=== PATIENT | male | born 1970 | race Caucasian/White ===

== ENCOUNTER 2017-06-02 08:19 | Emergency (ER) | payer BC ==
--- NOTE | 2017-06-02 09:40 | UC ---
Truncal Trauma HPI - HPI Summary HPI Summary: 47 yo male was on tractor yesterday tried to push a 40 foot tree down yesterday with back blade tree snapped and top fell on him injuring his left lateral chest and left back as well as left hip and pelvis denies head injury or neck injury - History Of Current Complaint Chief Complaint: UCTrauma Stated Complaint: LEFT SIDE TRAUMA TREE FELL ON PT Time Seen by Provider: 06/02/17 08:54 Hx Obtained From: Patient Onset/Duration: Sudden Onset, Lasting Hours Onset Of Pain: Immediate Severity Initially: Severe Severity Currently: Moderate Pain Intensity: 7 - declines analgesia Pain Scale Used: 0-10 Numeric Mechanism Of Injury: Direct Blow Aggravating Factor(s): Movement, Deep Breathing, Cough, Other - ambul;ation Alleviating factor(s): Rest Associated Signs And Symptoms: Positive: Chest Pain. Negative: SOB, Cough, Hematuria, Abdominal Pain, Fever, Nausea, Vomiting - Allergies/Home Medications Allergies/Adverse Reactions: Allergies Allergy/AdvReac Type Severity Reaction Status Date / Time No Known Allergies Allergy Verified 06/08/16 09:43 PMH/Surg Hx/FS Hx/Imm Hx Previously Healthy: Yes - Surgical History Surgical History: Yes Surgery Procedure, Year, and Place: CRANIOTOMY 11/02/13. TONSILS A CHILD. WISDOM TEETH - Family History Known Family History: Positive: Hypertension - Social History Alcohol Use: Daily Alcohol Amount: 1 beer daily Substance Use Type: None Smoking Status (MU): Never Smoked Tobacco Review of Systems Constitutional: Negative Skin: Negative Eyes: Negative ENT: Negative Respiratory: Negative Cardiovascular: Chest Pain Gastrointestinal: Negative Genitourinary: Negative Motor: Negative Neurovascular: Negative Musculoskeletal: Arthralgia Neurological: Negative Psychological: Negative Is Patient Immunocompromised?: No All Other Systems Reviewed And Are Negative: Yes Physical Exam Triage Information Reviewed: Yes Appearance: Well-Nourished, Pain Distress Vital Signs: Initial Vital Signs Temp 98.1 F 06/02/17 08:42 Pulse 77 06/02/17 08:42 Resp 18 06/02/17 08:42 BP 145/86 06/02/17 08:42 Pulse Ox 100 06/02/17 08:42 Eyes: Positive: Conjunctiva Clear ENT: Positive: Hearing grossly normal, Uvula midline. Negative: Nasal congestion, Nasal drainage, Tonsillar swelling, Tonsillar exudate, Trismus, Muffled voice, Hoarse voice, Dental tenderness, Sinus tenderness Neck: Positive: Supple, Nontender, No Lymphadenopathy Respiratory: Positive: Lungs clear, Normal breath sounds, No respiratory distress. Negative: Chest non-tender Cardiovascular: Positive: RRR, No Murmur Abdomen Description: Positive: Nontender, No Organomegaly, Soft. Negative: CVA Tenderness (R), CVA Tenderness (L) Bowel Sounds: Positive: Present Musculoskeletal: Positive: ROM Intact, No Edema Neurological: Positive: Alert Psychological Exam: Normal Skin Exam: Normal Diagnostics - Radiology No standard instances Xray Interpretation: No Acute Changes - CXR and left ribs Radiology Interpretation Completed By: Radiologist - dengenerative changes left acebalum Truncal Trauma Course/Dx - Course Course Of Treatment: Urine dip: no RBCs - Differential Dx/Diagnosis Provider Diagnoses: Rib contusions. back contusion. left hip and pelvis contusion Discharge - Discharge Plan Condition: Stable Disposition: HOME Patient Education Materials: Hip Contusion (ED), Rib Contusion (ED) Referrals: Ivory Pagan MD [Primary Care Provider] - 1 Week (if not better) Additional Instructions: rest ice aleve 2 twice daily NO fxs on rib films No lung damage on chest XR No hip or pelvis fracture you do have some degenerative changes to left hip Images Front/Back of Body, Lg ([place]): 1 - tender/pain with rib springing 2 - tender
--- NOTE | 2017-06-02 10:16 | RAD ---
Indication: Left hip injury. 2 views of left hip and an AP view of the pelvis demonstrates no definite fracture. Calcification are probably the superior labrum is noted likely due to degeneration of the left superior acetabular rim labrum. No fracture is noted. 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 No fracture is identified.
[2017-06-02 10:39] VITALS: BP 146/90
--- NOTE | 2017-06-02 10:53 | RAD ---
Indication: Left posterior rib pain. 3 views of left ribs demonstrates no definite fracture. No other bone or joint abnormality is noted. Dual-energy PA views of the chest and shape no pneumothorax. IMPRESSION: No definite rib fracture is identified is identified. No pneumothorax is noted.
== END 2017-06-02 11:10 | disposition home or self-care (01) ==
LOC: UCEAST 08:19
DX: S20.229A Contusion of unspecified back wall of thorax, initial encounter (principal); S70.02XA Contusion of left hip, initial encounter; S30.0XXA Contusion of lower back and pelvis, initial encounter; W20.8XXA Other cause of strike by thrown, projected or falling object, initial encounter; Y93.89 Activity, other specified; Y92.9 Unspecified place or not applicable; Y99.9 Unspecified external cause status
CPT/HCPCS: 81002; 99211; G0463

== ENCOUNTER 2019-04-25 11:07 | Emergency (ER) | payer BC ==
--- NOTE | 2019-04-25 11:09 | UC ---
Skin Complaint HPI - HPI Summary HPI Summary: 48 yo male presents with tick bite. He tells me that yesterday evening his pulled a tick off his abdomen with jael metal tools from his garage. Is confident that the tick was not attached yesterday morning and thinks he acquired it while interacting with his dog during the dog. He is unsure the date of his last tetanus shot. Has no symptoms currently - History of Current Complaint Time Seen by Provider: 04/25/19 11:07 Stated Complaint: TICK BITE Hx Obtained From: Patient Onset/Duration: Sudden Onset Current Severity: None - Allergy/Home Medications Allergies/Adverse Reactions: Allergies Allergy/AdvReac Type Severity Reaction Status Date / Time No Known Allergies Allergy Verified 04/25/19 11:17 Home Medications: Home Medications Nortriptyline CAP* [Nortriptylline CAP*] 2 tab QPM 04/25/19 [History Confirmed 04/25/19] Sertraline* [Zoloft*] 1 tab DAILY 04/25/19 [History Confirmed 04/25/19] PMH/Surg Hx/FS Hx/Imm Hx - Additional Past Medical History Additional PMH: Cancer Psychological History: Anxiety, Depression - Surgical History Surgical History: Yes Surgery Procedure, Year, and Place: CRANIOTOMY 11/02/13. TONSILS A CHILD. WISDOM TEETH - Family History Known Family History: Positive: Hypertension - Social History Lives: With Family Alcohol Use: Daily Alcohol Amount: 1 beer daily Substance Use Type: None Smoking Status (MU): Never Smoked Tobacco Review of Systems All Other Systems Reviewed And Are Negative: No Constitutional: Positive: Negative Skin: Positive: Other - Tick bite Respiratory: Positive: Negative Cardiovascular: Positive: Negative Neurovascular: Positive: Negative Neurological: Positive: Negative Psychological: Positive: Negative Physical Exam - Summary Physical Exam Summary: GENERAL: NAD. WDWN. No pain distress. SKIN: ABDOMEN: there is a 7mm diameter of mild erythema and edema with central 2mm area of superficial skin loss and scab. No streaking, bleeding, or drainage. NECK: Supple. Nontender. No lymphadenopathy. CHEST: No accessory muscle use. Breathing comfortably and in no distress. CV: Pulses intact. Cap refill <2seconds NEURO: Alert. PSYCH: Age appropriate behavior. Triage Information Reviewed: Yes Vital Signs: Vital Signs: Temp Pulse Resp BP Pulse Ox 98.5 F 76 16 124/92 99 04/25/19 11:19 04/25/19 11:19 04/25/19 11:19 04/25/19 11:19 04/25/19 11:19 Vital Signs Reviewed: Yes Course/Dx - Course Course Of Treatment: Tick bite. He prefers to be treated for prophylactic lyme at this time, therefore he was given 200mg doxycycline in the clinic. tdap updated today. Advised to monitor for signs/symptoms of lyme and to be rechecked if he develops these - Diagnoses Provider Diagnosis: Tick bite Discharge ED - Sign-Out/Discharge Documenting (check all that apply): Patient Departure All imaging exams completed and their final reports reviewed: No Studies - Discharge Plan Condition: Stable Disposition: HOME Patient Education Materials: Lyme Disease (ED), Tick Bite (ED) Referrals: No Primary Care Phys,NOPCP [Primary Care Provider] - Additional Instructions: TICK BITE: You have been bitten by a tick. Once the tick is removed, these "bites" usually cause no problems. Tick fever, tick paralysis, [place] Spotted fever, and Lyme disease are uncommon -- but you should mention this tick bite to your doctor if you develop unusual symptoms in the next several weeks. If you develop any of the following, please see your physician promptly: (1) Fever, chills, or generalized malaise associated with a headache. (2) A red round area at the site of the bite (or elsewhere) (3) Joint pain, joint swelling or generalized weakness. (4) Redness, swelling, or drainage at the site of the bite. Ticks do not have a typical "head" attached to their body. There are mouth parts sticking out which they use to feed. If there are mouth parts left behind in the wound there is NO increased risk of Lyme infection or disease transmission. If mouth parts remain after tick removal, the best thing to do is apply warm soaks to the area 3-4 times per day to encourage the skin to expel the foreign material. WHEN A TICK IS NOT ENGORGED AND HAS BEEN ON LESS THAN 24 HOURS - THE RISK FOR LYME IS NEGLIGIBLE. YOU CAN REMOVE THE TICK AND OBSERVE THE AREA ON YOUR OWN. - Billing Disposition and Condition Condition: STABLE Disposition: Home
[2019-04-25 11:20] VITALS: BP 124/92
[2019-04-25] MEDS ORDERED: Tetan/Diph/Pertus SYR(Tdap)* 0.5 ML SYR(BOOSTRIX) use SYR contains LATEX IM ONE (11:23)
[2019-04-25] MEDS ORDERED: DOXYcycline CAP(*) 100 MG PO ONE (11:23)
== END 2019-04-25 11:32 | disposition home or self-care (01) ==
LOC: UCCORT 11:07
DX: S30.861A Insect bite (nonvenomous) of abdominal wall, initial encounter (principal); F32.9 Major depressive disorder, single episode, unspecified; F41.9 Anxiety disorder, unspecified; Z79.899 Other long term (current) drug therapy; Z23 Encounter for immunization; Z85.9 Personal history of malignant neoplasm, unspecified; W57.XXXA Bitten or stung by nonvenomous insect and other nonvenomous arthropods, initial encounter; Y92.9 Unspecified place or not applicable
CPT/HCPCS: 90471; 90715; 99212; A9270-GY; G0463

== ENCOUNTER 2021-02-01 20:21 | Observation (INO) ==
[2021-02-01 21:41] LABS: ABS Lymphocytes 0.3 10^3/ul (1.0-4.8); ABS Monocytes 0.3 10^3/ul (0-0.8); ABS Neutrophils 3.6 10^3/ul (1.5-7.7); Eosinophil % 0.3 %; Hematocrit 39 % (42-52); Hemoglobin 13.9 g/dL (14.0-18.0); Lymphocyte % 7.3 %; Mean Corpuscular HGB Conc 35 g/dL (31-36); Mean Corpuscular Hemoglobin 33 pg (27-31); Mean Corpuscular Volume 95 fL (80-94); Mean Platelet Volume 6.7 fL (7.4-10.4); Nucleated Red Blood Cells % 0.1; Platelet Count 149 10^3/uL (150-450); Red Blood Count 4.16 10^6 /uL (4.18-5.48); Red Cell Distribution Width 12 % (10-15); White Blood Count 4.2 10^3/uL (3.5-10.8)
[2021-02-01 21:47] LABS: INR 1.07 (0.86-1.15)
[2021-02-01 21:51] LABS: ALT 219 U/L (7-52); AST 176 U/L (13-39); Albumin 4.2 g/dL (3.2-5.2); Albumin/Globulin Ratio 1.4 (1-3); Alkaline Phosphatase 157 U/L (35-149); Anion Gap 7 mmol/L (2-11); Blood Urea Nitrogen 15 mg/dL (6-24); C Reactive Protein 127.55 mg/L (<8.01); CO2 Carbon Dioxide 24 mmol/L (22-32); Calcium 9.2 mg/dL (8.6-10.3); Chloride 102 mmol/L (101-111); Globulin 3.1 g/dL (2-4); Glucose 132 mg/dL (70-100); Potassium 3.8 mmol/L (3.5-5.0); Sodium 133 mmol/L (135-145); Total Protein 7.3 g/dL (6.4-8.9)
[2021-02-01] MEDS ORDERED: NS 0.9% 1000 ml BAG 2,000 ML IV ONE (21:51)
[2021-02-01 22:01] LABS: Urine Appearance Cloudy; Urine Bilirubin Negative (Negative); Urine Blood Negative (Negative); Urine Color Amber; Urine Glucose Negative (Negative); Urine Ketones Negative (Negative); Urine Nitrite Negative (Negative); Urine Protein 1+(30 mg/dL) (Negative); Urine Specific Gravity 1.026 (1.002-1.030); Urine Urobilinogen Positive (Negative)
[2021-02-01 22:05] LABS: Urine Bacteria Absent (Absent); Urine Red Blood Cell Trace(0-2/hpf) (Absent); Urine Squamous Epithelial Cell Present (Absent); Urine White Blood Cell Trace(0-5/hpf) (Absent)
[2021-02-01 22:07] LABS: Troponin I 0.07 ng/mL (<0.03)
[2021-02-01] MEDS ORDERED: Iohexol 350 (CONTRAST) 500 ML MDV IV ONE (23:34)
[2021-02-02 00:46] LABS: Hepatitis B Surface Antigen Nonreactive (Nonreactive)
[2021-02-02 00:51] LABS: Hepatitis A Ab IgM Negative (Negative)
[2021-02-02 00:52] LABS: Hepatitis B Core IgM Nonreactive (Nonreactive)
[2021-02-02 01:04] LABS: Hepatitis C Antibody Negative (Negative)
[2021-02-02] MEDS ORDERED: Ondansetron 4 mg VIAL 2 MG/ML 2 ml VIAL IV PRN (01:35)
[2021-02-02] MEDS ORDERED: Al Hydrox/Mg Hydrox/Simet LIQ 30 ML UDC PO PRN (01:35)
[2021-02-02 07:03] LABS: ABS Lymphocytes 0.7 10^3/ul (1.0-4.8); ABS Monocytes 0.4 10^3/ul (0-0.8); ABS Neutrophils 2.4 10^3/ul (1.5-7.7); Eosinophil % 0.6 %; Hematocrit 35 % (42-52); Hemoglobin 12.3 g/dL (14.0-18.0); Lymphocyte % 19.1 %; Mean Corpuscular HGB Conc 35 g/dL (31-36); Mean Corpuscular Hemoglobin 34 pg (27-31); Mean Corpuscular Volume 96 fL (80-94); Mean Platelet Volume 6.6 fL (7.4-10.4); Platelet Count 154 10^3/uL (150-450); Red Blood Count 3.65 10^6 /uL (4.18-5.48); Red Cell Distribution Width 13 % (10-15); White Blood Count 3.5 10^3/uL (3.5-10.8)
[2021-02-02] MEDS: Lactated Ringers 1000 ml BAG 1,000 ML IV SCH (07:05)
[2021-02-02 07:19] LABS: Albumin 3.7 g/dL (3.2-5.2); Albumin/Globulin Ratio 1.2 (1-3); Calcium 8.8 mg/dL (8.6-10.3); EGFR Non-African American 104.9 (>60); Potassium 3.8 mmol/L (3.5-5.0); Total Bilirubin 0.9 mg/dL (0.2-1.0); Total Protein 6.7 g/dL (6.4-8.9)
[2021-02-02 07:34] LABS: Troponin I 1.25 ng/mL (<0.03)
[2021-02-02] MEDS: DOXYcycline 100 MG in NS 0.9% 250 ml 250 ML IVPB SCH ×2 (09:09→20:33)
[2021-02-02] MEDS: Enoxaparin 40 MG/0.4 ML SYR SUBCUT SCH (09:09)
[2021-02-02] MEDS: cefTRIAXone 1 gm/50 mL NS BAG 1 GM/50 ML BAG IVPB SCH (13:45)
[2021-02-03] MEDS: Lactated Ringers 1000 ml BAG 1,000 ML IV SCH (01:29)
[2021-02-03 06:25] LABS: Hematocrit 36 % (42-52); Hemoglobin 12.7 g/dL (14.0-18.0); Mean Corpuscular HGB Conc 36 g/dL (31-36); Mean Corpuscular Hemoglobin 34 pg (27-31); Mean Corpuscular Volume 94 fL (80-94); Mean Platelet Volume 6.5 fL (7.4-10.4); Platelet Count 170 10^3/uL (150-450); Red Blood Count 3.79 10^6 /uL (4.18-5.48); Red Cell Distribution Width 13 % (10-15); White Blood Count 2.3 10^3/uL (3.5-10.8)
[2021-02-03 06:47] LABS: Albumin 3.7 g/dL (3.2-5.2); Albumin/Globulin Ratio 1.2 (1-3); C Reactive Protein 109.55 mg/L (<8.01); Calcium 9.2 mg/dL (8.6-10.3); Direct Bilirubin 0.1 mg/dL (0.03-0.18); EGFR African American 148.8 (>60); EGFR Non-African American 122.9 (>60); Globulin 3.1 g/dL (2-4); Indirect Bilirubin 0.6 mg/dL (0.3-1.0); Total Bilirubin 0.7 mg/dL (0.2-1.0); Total Protein 6.8 g/dL (6.4-8.9)
[2021-02-03] MEDS: DOXYcycline 100 MG in NS 0.9% 250 ml 250 ML IVPB SCH ×2 (08:47→20:41)
[2021-02-03] MEDS: Enoxaparin 40 MG/0.4 ML SYR SUBCUT SCH (08:53)
[2021-02-03] MEDS: cefTRIAXone 1 gm/50 mL NS BAG 1 GM/50 ML BAG IVPB SCH (13:14)
[2021-02-03 15:09] LABS: RBC Parasite Smear No Parasites Seen (No Parasite)
[2021-02-04 05:28] LABS: ABS Eosinophils 0.1 10^3/ul (0-0.6); ABS Monocytes 0.4 10^3/ul (0-0.8); ABS Neutrophils 1.6 10^3/ul (1.5-7.7); Eosinophil % 2.8 %; Hematocrit 38 % (42-52); Hemoglobin 13.5 g/dL (14.0-18.0); Lymphocyte % 32.4 %; Mean Corpuscular HGB Conc 35 g/dL (31-36); Mean Corpuscular Hemoglobin 33 pg (27-31); Mean Corpuscular Volume 94 fL (80-94); Mean Platelet Volume 6.5 fL (7.4-10.4); Platelet Count 237 10^3/uL (150-450); Red Blood Count 4.08 10^6 /uL (4.18-5.48); Red Cell Distribution Width 13 % (10-15); White Blood Count 3.1 10^3/uL (3.5-10.8)
[2021-02-04 05:44] LABS: Albumin 3.8 g/dL (3.2-5.2); Albumin/Globulin Ratio 1.2 (1-3); Calcium 9.4 mg/dL (8.6-10.3); EGFR African American 141.5 (>60); Globulin 3.3 g/dL (2-4); Magnesium 2.1 mg/dL (1.9-2.7); Total Bilirubin 0.6 mg/dL (0.2-1.0); Total Protein 7.1 g/dL (6.4-8.9)
[2021-02-04] MEDS: DOXYcycline 100 MG in NS 0.9% 250 ml 250 ML IVPB SCH (09:03)
[2021-02-04] MEDS: Enoxaparin 40 MG/0.4 ML SYR SUBCUT SCH (09:15)
[2021-02-04] MEDS: cefTRIAXone 1 gm/50 mL NS BAG 1 GM/50 ML BAG IVPB SCH (11:26)
[2021-02-04 12:04] VITALS: BP 133/89
[2021-02-05 00:24] LABS: IgG Immunoblot Negative (Negative); IgM Immunoblot Positive (Negative)
[2021-02-05 07:44] LABS: Anaplasma phagocytophilum Negative (Negative); B. miyamotoi PCR, B Negative (Negative); Babesia divergens/MO-1 Negative (Negative); Babesia ducani Negative (Negative); Ehrlichia chaffeensis Negative (Negative); Ehrlichia ewingii/canis Negative (Negative); Ehrlichia muris eauclairensis Negative (Negative)
== END 2021-02-04 13:30 | disposition home or self-care (01) ==
LOC: ED 20:21 → MEDTELE 20:21
PROVIDERS: ADMIT Hospitalist; ATTEND Internal Medicine